=== PATIENT | male | born 1945 | race Caucasian/White ===

== ENCOUNTER 2017-12-08 16:30 | Observation (INO) | payer MEDICARE ==
[~2017-12-08] VITALS: Ht 175.3 cm; Wt 81.6 kg
[~2017-12-08 16:30] MED LIST: ANTIVERT25 MG PO; ASPIRIN81 M2 PO; MINOCIN100 MG PO; ZOCOR20 MG PO
[2017-12-08 16:39] VITALS: BP 161/87
[2017-12-08 17:07] LABS: ABSOLUTE EOSINOPHILS 0.1 thou/uL (0.0-0.7); ABSOLUTE LYMPHOCYTES 1.3 thou/uL (0.8-5.3); ABSOLUTE MONOCYTES 0.5 thou/uL (0.0-1.2); ABSOLUTE NEUTROPHILS 6.8 thou/uL (1.6-8.1); BASOPHILS 0.5 %; EOSINOPHILS 1.3 %; HEMATOCRIT 44.9 % (42.0-52.0); LYMPHOCYTES 14.6 %; MCH 29.4 pg (26.0-34.0); MCHC 33.5 g/dL (28.0-37.0); MCV 87.7 fL (80.0-100.0); MONOCYTES 5.5 %; MPV 7.7 fl. (7.2-11.1); NUCLEATED RBCS 0 /100WBC; PLATELET COUNT* 178 thou/uL (150-400); POLYS 78.1 %; RBC 5.12 mil/uL (4.50-6.00); RDW-CV 13.5 % (10.5-14.5); WBC 8.7 thou/uL (4.0-11.0)
[2017-12-08 17:12] LABS: ANION GAP 7 mmol/L (7-16); BUN 17 mg/dL (7-18); CALCIUM 8.5 mg/dL (8.5-10.1); CHLORIDE 107 mmol/L (98-107); CO2 28 mmol/L (21-32); GLUCOSE 117 mg/dL (70-99); POTASSIUM 4.2 mmol/L (3.5-5.1); SODIUM 142 mmol/L (136-145)
[2017-12-08 17:13] LABS: PROTIME 10.1 Seconds (9.20-11.50)
[2017-12-08 17:23] LABS: ALBUMIN 3.8 g/dL (3.4-5.0); ALKALINE PHOSPHATASE 73 U/L (46-116); NT-PRO BRAIN NAT PEPTIDE 48 pg/mL (<300); SGOT 14 U/L (15-37); SGPT 15 U/L (30-65); TOTAL BILIRUBIN 1.4 mg/dL (<0.1-1.0); TOTAL PROTEIN 7.3 g/dL (6.4-8.2); TROPONIN-I LEVEL <0.06 ng/mL (<0.06)
[2017-12-08 18:38] VITALS: BP 144/81
[2017-12-08 18:44] VITALS: BP 144/81
[2017-12-08 20:00] VITALS: BP 133/74
[2017-12-09] VITALS: BP 128/69
[2017-12-09 03:12] LABS: URINE BILIRUBIN NEGATIVE (Negative); URINE BLOOD NEGATIVE (Negative); URINE CLARITY CLEAR; URINE COLOR YELLOW; URINE GLUCOSE-RANDOM NEGATIVE (Negative); URINE KETONES TRACE (Negative); URINE LEUKOCYTES-REFLEX NEGATIVE (Negative); URINE NITRITE-REFLEX NEGATIVE (Negative); URINE PROTEIN NEGATIVE (Negative); URINE SPECIFIC GRAVITY 1.015 (1.005-1.030)
[2017-12-09 04:00] VITALS: BP 126/66
[2017-12-09 04:52] LABS: HEMATOCRIT 40.6 % (42.0-52.0); HEMOGLOBIN 13.9 gm/dL (14.0-18.0); MCH 29.7 pg (26.0-34.0); MCHC 34.2 g/dL (28.0-37.0); MCV 86.8 fL (80.0-100.0); MPV 8.1 fl. (7.2-11.1); RBC 4.68 mil/uL (4.50-6.00); RDW-CV 13.2 % (10.5-14.5); WBC 9.8 thou/uL (4.0-11.0)
[2017-12-09 05:05] LABS: ANION GAP 5 mmol/L (7-16); BUN 15 mg/dL (7-18); CALCIUM 8.2 mg/dL (8.5-10.1); CHLORIDE 107 mmol/L (98-107); CHOLESTEROL 104 mg/dL (<200); CO2 28 mmol/L (21-32); CREATININE 0.9 mg/dL (0.6-1.3); GLUCOSE 96 mg/dL (70-99); HDL CHOLESTEROL 39 mg/dL (>40); LDL CHOLESTEROL 50 mg/dL (<100); MAGNESIUM 2.1 mg/dL (1.8-2.4); POTASSIUM 5.1 mmol/L (3.5-5.1); SODIUM 140 mmol/L (136-145); TC:HDL 2.7 Ratio (Not establshd); TRIGLYCERIDE 75 mg/dL (<150); VLDL 15 mg/dL (<40)
[2017-12-09 05:06] LABS: SERUM ASSESSMENT Clear
[2017-12-09 08:00] VITALS: BP 135/71
[2017-12-09] MEDS ORDERED: ANTIVERT25 MG PO (08:54)
[2017-12-09] MEDS ORDERED: ADULT LOW DOSE81 MG PO (08:54)
--- NOTE | 2017-12-09 11:49 | EKG ---
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
[2017-12-09 12:00] VITALS: BP 122/60
--- NOTE | 2017-12-09 13:38 | 2DMMODE ---
[place] [address] 2 D/M-MODE ECHOCARDIOGRAM Name: LEANNE GUTIERREZ Room: [address] IN [facility]#: [id number] Admission: 12/08/17 Attend Phys: mOar Soto, Discharge: Date of : 49 Date of Service: 12/09/17 1337 Report #: [id number] THIS REPORT FOR: //name// APPROVED REPORT Study performed: 12/09/2017 10:37:43 EXAM: Comprehensive 2D, Doppler, and color-flow Echocardiogram Patient Location: In-Patient Room #: 206 Status: routine BSA: 1.98 HR: 66 bpm BP: 126/66 mmHg Rhythm: NSR Other Information Study Quality: Good Indications CVA/TIA Echo Enhancing Agent Indication: Rule out Shunt Agent(s) / Amount(s) Used: Agitated Saline 10 cc 2D Dimensions LVEF(%): 76.04 (>50%) IVSd: 8.80 (7-11mm) LVOT Diam: 19.72 (18-24mm) LVDd: 43.96 mm PWd: 8.88 (7-11mm) Ascending Ao: 32.56 (22-36mm) LVDs: 24.38 (25-40mm) Aortic Root: 36.50 mm Guerrero's LVEF: 76.04 % Volumes Left Atrial Volume (Systole) LA ESV Index: 18.20 mL/m2 Aortic Valve LVOT Max P.67 mmHg LVOT Mean P.92 mmHg LVOT Max V: 1.08 m/s LVOT Mean V: 0.62 m/s LVOT V1 VTI: 23.59 [place] [address] 2 D/M-MODE ECHOCARDIOGRAM Name: LEANNE GUTIERREZ Room: [address] IN [facility]#: [id number] Admission: 12/08/17 Attend Phys: Omar Soto, Discharge: Date of : 49 Date of Service: 12/09/17 1337 Report #: [id number] [place]: 1.99 m/s2 AI PHT: 556.56 ms Mitral Valve E/A Ratio: 1.27 MV Decel. Time: 176.12 ms MV E Max Angelito.: 0.82 m/s MV PHT: 51.07 ms MVA (PHT): 4.31 cm2 TDI E/Lateral E': 8.20 E/Medial E': 7.45 Medial E' Angelito.: 0.11 m/s Lateral E' Angelito.: 0.10 m/s Pulmonary Valve PV Peak Angelito.: 0.90 m/s PV Peak Gr.: 3.27 mmHg Tricuspid Valve TR Peak Gr.: 22.58 mmHg RVSP: 27.00 mmHg Left Ventricle The left ventricle is normal size. There is normal LV segmental wall motion. There is normal left ventricular wall thickness. Left ventricular systolic function is normal. The left ventricular ejection fraction is within the normal range. No left ventricle thrombus noted on this study. LVEF is 60-65%. The left ventricular diastolic function is normal. Right Ventricle The right ventricle is normal size. The right ventricular systolic function is normal. Atria The left atrium size is normal. Interatrial septum is intact without evidence of ASD or PFO.Negative bubble study The right atrium size is normal. Aortic Valve The aortic valve is normal in structure. Mild aortic regurgitation. There is no aortic valvular stenosis. Mitral Valve The mitral valve is normal in structure. There is no mitral valve regurgitation noted. No evidence of mitral [place] [address] 2 D/M-MODE ECHOCARDIOGRAM Name: BRENDALEANNE BRINK A Room: [address] IN [facility]#: [id number] Admission: 12/08/17 Attend Phys: Omar Soto, Discharge: Date of : 49 Date of Service: 12/09/17 1337 Report #: [id number] Tricuspid Valve The tricuspid valve is normal in structure. Mild tricuspid regurgitation. The RVSP is ___27____ mmHg. Pulmonic Valve The pulmonary valve is normal in structure. There is no pulmonic valvular regurgitation. Great Vessels The aortic root is normal in size. IVC is normal in size and collapses with >50% inspiration Pericardium There is no pericardial effusion. <Conclusion> The left ventricle is normal size. There is normal LV segmental wall motion. LVEF is 60-65%. The aortic valve is normal in structure. Mild aortic regurgitation. There is no aortic valvular stenosis. There is no mitral valve regurgitation noted. No evidence of mitral valve stenosis. Mild tricuspid regurgitation. The RVSP is 27mmHg. Interatrial septum is intact without evidence of ASD or PFO.Negative bubble study <ELECTRONICALLY SIGNED> By: José Soto MD, FACC 12/09/171336 36 36 José Soto MD, FACC /INF
[2017-12-09 16:50] VITALS: BP 116/55
[2017-12-09 17:01] VITALS: BP 116/55
[2017-12-09 19:08] LABS: GLYCOHEMOGLOBIN (HGB A1C) 4.9 % (4.8-5.6)
== END 2017-12-09 18:31 | disposition home or self-care (01) ==
LOC: M.ERS 16:30 → M.2W 17:12 → M.TBA-ER 17:12 → M.2W 18:30
PROVIDERS: Family Medicine; ADMIT Internal Medicine
DX: R42 Dizziness and giddiness (principal); H53.2 Diplopia; E78.5 Hyperlipidemia, unspecified; M54.81 Occipital neuralgia; I67.1 Cerebral aneurysm, nonruptured; T85.09XA Other mechanical complication of ventricular intracranial (communicating) shunt, initial encounter; Z86.73 Personal history of transient ischemic attack (TIA), and cerebral infarction without residual deficits; Z98.2 Presence of cerebrospinal fluid drainage device; Z86.79 Personal history of other diseases of the circulatory system

== ENCOUNTER 2018-04-22 14:56 | Emergency (ER) | payer MEDICARE ==
[~2018-04-22] VITALS: Ht 177.8 cm; Wt 80.2 kg
[~2018-04-22 14:56] MED LIST changes: +ADULT LOW DOSE81 MG PO
[2018-04-22 15:27] LABS: ABSOLUTE BASOPHILS 0.1 thou/uL (0.0-0.2); ABSOLUTE EOSINOPHILS 0.2 thou/uL (0.0-0.7); ABSOLUTE LYMPHOCYTES 1.4 thou/uL (0.8-5.3); ABSOLUTE MONOCYTES 0.7 thou/uL (0.0-1.2); ABSOLUTE NEUTROPHILS 5.4 thou/uL (1.6-8.1); BASOPHILS 1.1 %; EOSINOPHILS 2.3 %; HEMOGLOBIN 15.3 gm/dL (14.0-18.0); LYMPHOCYTES 17.7 %; MCH 29.6 pg (26.0-34.0); MCV 86.9 fL (80.0-100.0); MPV 7.7 fl. (7.2-11.1); NUCLEATED RBCS 0 /100WBC; PLATELET COUNT* 175 thou/uL (150-400); POLYS 69.9 %; RBC 5.17 mil/uL (4.50-6.00); WBC 7.7 thou/uL (4.0-11.0)
[2018-04-22 15:44] LABS: ANION GAP 7 mmol/L (7-16); BUN 17 mg/dL (7-18); CALCIUM 8.8 mg/dL (8.5-10.1); CHLORIDE 105 mmol/L (98-107); CO2 27 mmol/L (21-32); GLUCOSE 91 mg/dL (70-99); POTASSIUM 4.4 mmol/L (3.5-5.1); SODIUM 139 mmol/L (136-145)
[2018-04-22 15:55] LABS: ALBUMIN 3.9 g/dL (3.4-5.0); ALKALINE PHOSPHATASE 80 U/L (46-116); LIPASE 110 U/L (73-393); NT-PRO BRAIN NAT PEPTIDE 63 pg/mL (<300); SGOT 15 U/L (15-37); SGPT 14 U/L (30-65); TOTAL BILIRUBIN 2.4 mg/dL (<0.1-1.0); TOTAL PROTEIN 7.6 g/dL (6.4-8.2); TROPONIN-I LEVEL <0.06 ng/mL (<0.06)
[2018-04-22] MEDS ORDERED: CITRATE OF MAG296 M1 PO (16:48)
[2018-04-22 17:10] VITALS: BP 135/71
--- NOTE | 2018-04-23 12:47 | EKG ---
[place] [address] ELECTROCARDIOGRAM REPORT Name: LEANNE GUTIERREZ Room: [facility]#: [id number] Admission: 04/22/18 Attend Phys: Discharge: 04/22/18 Date of : 49 Report #: [id number] THIS REPORT FOR: //name// [facility] ED Test Date: 2018-04-22 Test Time: 15:24:12 Pat Name: LEANNE GUTIERREZ Department: Room: Gender: Forensic Technician: Rigoberto GONZÁLES : 1945 Requested By: Natalie Walker Order Number: [id number] MD: José Soto Measurements Intervals [place] Rate: 63 P: 35 SD: 140 QRS: 14 QRSD: 92 T: 14 QT: 391 QTc: 401 Interpretive Statements Sinus rhythm Compared to ECG 12/08/2017 16:56:48 No significant changes Electronically Signed On 04-23-2018 12:46:54 CDT by José Soto [email or web address] <ELECTRONICALLY SIGNED> By: José Soto MD, [facility] 04/23/18 1246 1524 1524 José Soto MD, FACC /EPI
== END 2018-04-22 17:11 | disposition home or self-care (01) ==
LOC: M.ERS 14:56
PROVIDERS: Nurse Practitioner
DX: K59.00 Constipation, unspecified (principal); I10 Essential (primary) hypertension; Z86.73 Personal history of transient ischemic attack (TIA), and cerebral infarction without residual deficits

== ENCOUNTER → 2018-06-08 | Outpatient (CLI) | payer MEDICARE ==
[~2018-06-08] MED LIST changes: +CITRATE OF MAG296 M1 PO
[2018-06-08 10:33] LABS: DIRECT BILIRUBIN 0.2 mg/dL (<0.1-0.3); TOTAL BILIRUBIN 1.2 mg/dL (<0.1-1.0)
== END ==
LOC: M.LAB 09:18 → M.ULTRA 09:18
PROVIDERS: Internal Medicine Gastroenterology
DX: K76.89 Other specified diseases of liver (principal)

== ENCOUNTER 2020-12-09 13:11 | Inpatient (IN) | payer MEDICARE ==
[~2020-12-09] VITALS: Ht 180.3 cm; Wt 81.6 kg
--- NOTE | ~2020-12-09 | EEG ---
[address] [address] EEG STUDY REPORT Name: LEANNE GUTIERREZ Room: [address] IN .R.#: [id number] Admission: 12/09/20 Attend Phys: Socrates Ariza MD Discharge: Date of : 49 Report #: [id number] THIS REPORT FOR: cc: FAM - No family physician/PCP FAM - No family physician/PCP Doroteo Patel MD ~ DOC #: [id number] Doroteo Patel MD DATE OF SERVICE: 12/10/2020 This patient is being evaluated for episodes of altered mental status. EEG was done by placing the electrode by standard 10-20 system of electrode placement. Both referential and sequential montages were used for recording. Background activity in this patient's EEG is about 8 Hz and 30 microvolt. The patient went to sleep that is associated with bilateral slowing and vertex sharp waves. EEG continued to be slow and low voltage even when the patient was awake. Photic stimulation is unremarkable. Throughout the record, no active epileptiform activity was noticed. IMPRESSION: This patient's EEG is slow and somewhat disorganized. That is a nonspecific abnormality which can occur with encephalopathy, effect of psychotropic medication, dementia, etc. Clinical correlation is recommended. Doroteo Patel MD PK/REUBEN/BAOI By: 1747 1840Doroteo Patel MD /bo
--- NOTE | ~2020-12-09 | CON ---
[address] [address] CONSULTATION Name: BRENDABERTO Room: [address] IN .R.#: [id number] Admission: 12/09/20 Attend Phys: Socrates Ariza MD Discharge: Date of : 49 Report #: [id number] THIS REPORT FOR: cc: FAM - No family physician/PCP FAM - No family physician/PCP Doroteo Patel MD ~ DOC #: [id number] Doroteo Patel MD DATE OF CONSULTATION: 12/09/2020 HISTORY OF PRESENT ILLNESS: This is a 75-year-old male patient who was evaluated by me for pretty unstructured symptom. I talked to the emergency room doctor, it looks like this patient had some confusion, disorientation and some ataxia and slurring of the speech, which happened when he woke up this morning. It was noticed when he woke up this morning, so the time of onset is not clear. 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 He said aneurysm was clipped. He does not know when it was clipped because he says his memory is poor. He has a caregiver. I think we need to confirm his history from somebody else. REVIEW OF SYSTEMS: Also, apparently positive for ventriculoperitoneal shunt, coil placement. He does not know whether the coil was compatible with MRI or not. He has a history of hypertension, CVA. He is very hard of hearing that is his baseline. He does not think he is having any new eye, ENT, cardiac, respiratory, GI, , musculoskeletal, constitutional, dermatological, hematological, psychiatric, throat, allergic symptom associated with present symptomatology. PAST MEDICAL HISTORY: Positive for aneurysm, coil put in. He does not know any more history about that. FAMILY HISTORY: Unremarkable. SOCIAL HISTORY: He used to work as a dentist. He does not smoke or drink any alcohol. PHYSICAL EXAMINATION: NEUROLOGIC: He is hard of hearing, but he can tell me what month it is. His speech looks intact. He feels back to his baseline. His memory is poor. His cranial nerve examination II-XII looks mostly unremarkable. Neuromuscular examination is also unremarkable. He does not appear to have any olyghm-ud-ohkx abnormality. His fundus could not be visualized. He is a pretty well-built individual. He does not have any edema. VITAL SIGNS: His blood pressure is 130/72, respirations 12, [place] 70[place] [address] CONSULTATION Name: LEANNE GUTIERREZ Room: [address]#: [id number] Admission: 12/09/20 Attend Phys: Socrates Ariza MD Discharge: Date of : 49 Report #: [id number] CARDIAC: Examination is unremarkable. Pulses are palpable. LUNGS: No respiratory difficulty was noticed. NECK: No thyroid mass. No carotid bruit. HEENT: He is hard of hearing, but his vision looks intact. No dysmorphic features of eyes, ears and face. LABORATORY DATA: Indicates a white count of 6.6 and sodium of 141. DIAGNOSTIC DATA: He did have a CT scan of the head which was unremarkable. He also had a CT perfusion, which was unremarkable. 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 He has right SANDWICH MAKER shunt, which is not clear whether it is even MRI compatible or not. IMPRESSION: An episode which can be transient ischemic attack. His workup so far is unremarkable. Sometime this patients can have nonconvulsive seizures. RECOMMENDATIONS: 1. EEG. 2. We will get an echocardiogram. 3. We will not be able to do MRI in this patient because we do not know whether the coil was compatible with MRI and we do not know whether SANDWICH MAKER shunt is compatible with MRI. I discussed all of it with the patient and the patient understands and he wants to follow this plan. Thank you very much for this referral. Doroteo Patel MD PK/SUM By: 1630 28Parsimone Patel MD /nt
[2020-12-09 13:22] VITALS: BP 165/83
[2020-12-09 13:54] LABS: ABSOLUTE BASOPHILS 0.1 thou/uL (0.0-0.2); ABSOLUTE EOSINOPHILS 0.1 thou/uL (0.0-0.7); ABSOLUTE LYMPHOCYTES 1.2 thou/uL (0.8-5.3); ABSOLUTE MONOCYTES 0.6 thou/uL (0.0-1.2); ABSOLUTE NEUTROPHILS 4.6 thou/uL (1.6-8.1); BASOPHILS 0.9 %; EOSINOPHILS 2.1 %; HEMATOCRIT 42.3 % (42.0-52.0); HEMOGLOBIN 14.8 gm/dL (14.0-18.0); LYMPHOCYTES 18.3 %; MCH 30.3 pg (26.0-34.0); MCV 86.6 fL (80.0-100.0); MONOCYTES 9.3 %; MPV 7.4 fl. (7.2-11.1); NUCLEATED RBCS 0 /100WBC; PLATELET COUNT* 186 thou/uL (150-400); POLYS 69.4 %; RBC 4.89 mil/uL (4.50-6.00); RDW-CV 13.8 % (10.5-14.5); WBC 6.6 thou/uL (4.0-11.0)
[2020-12-09 14:00] LABS: CALCIUM 8.8 mg/dL (8.5-10.1)
[2020-12-09 14:03] LABS: APTT 25.4 Seconds (25.0-31.3); PROTIME 10.3 Seconds (9.20-11.50)
[2020-12-09 14:10] LABS: ALBUMIN 3.8 g/dL (3.4-5.0); TOTAL BILIRUBIN 1.1 mg/dL (<0.1-1.0); TOTAL PROTEIN 7.6 g/dL (6.4-8.2)
--- NOTE | 2020-12-09 15:33 | EKG ---
[place] [address] ELECTROCARDIOGRAM REPORT Name: BRENDALEANNE Room: [place] [address] ADM IN [facility]#: [id number] Admission: 12/09/20 Attend Phys: Socrates Ariza, Discharge: Date of : 49 Date of Service: 12/09/20 1340 Report #: [id number] THIS REPORT FOR: //name// [facility] ED Test Date: 2020-12-09 Test Time: 13:40:00 Pat Name: LEANNE GUTIERREZ Department: Room: [facility] Gender: M Hog Handler: NEPTALI : 1945 Requested By: Thom Arcos Order Number: [id number] MD: Jt Gonzalez Measurements Intervals [place] Rate: 69 P: 11 ID: 157 QRS: 13 QRSD: 91 T: 39 QT: 395 QTc: 423 Interpretive Statements Sinus rhythm Borderline low voltage, extremity leads Compared to ECG 04/22/2018 15:24:12 No significant changes Electronically Signed On 12-09-2020 15:33:35 CDT by Jt Gonzalez [email or web address] <ELECTRONICALLY SIGNED> By: Jt Gonzalez MD, FACC 12/09/20 1533 1340 1340 Jt Gonzalez MD, [facility] /EPI
--- NOTE | 2020-12-09 17:33 | NUR ---
PT TOLERATED 2GM MEAL FOR DINNER WITHOUT DIFFICULTY
[2020-12-09 18:18] VITALS: BP 134/73
[2020-12-09 20:20] VITALS: BP 142/70
[2020-12-09 20:30] VITALS: BP 160/79
[2020-12-10 00:36] VITALS: BP 129/57
[2020-12-10 01:17] LABS: URINE BILIRUBIN NEGATIVE (Negative); URINE BLOOD NEGATIVE (Negative); URINE CLARITY CLEAR; URINE COLOR YELLOW; URINE GLUCOSE-RANDOM NEGATIVE (Negative); URINE KETONES NEGATIVE (Negative); URINE LEUKOCYTES-REFLEX NEGATIVE (Negative); URINE NITRITE-REFLEX NEGATIVE (Negative); URINE PROTEIN NEGATIVE (Negative)
--- NOTE | 2020-12-10 04:05 | NUR ---
RECEIVED REPORT FROM ED RN PATSY. PT IS BEING ADMITTED FOR STROKE. RN STATED, "PT'S SPOUSE BROUGHT PT TO ED FOR SLURRING HIS WORDS AND HAD INCREASED CONFUSION SINCE THE MORNING." PT'S NIH SCORE IN ED WAS 2, MINOR FACIAL PALSY AND MILD TO MODERATE APHAGIA. PT HAS BEEN SEEN BY NEUROLOGY IN ED. PT ADMITTED TO TELE UNIT RM #224 AT 2027. PT IS A/OX4. PT'S NIH STROKE SCALE WAS 1. VSS. PT IS TRACING NS ON TELEMONITOR. PT IS ON RA, O2 SAT 99%. PT DENIES ANY RESPIRATORY ISSUES. PT HAS AN IV IN LAC 20G AND IS SL. PT IS CONTINENT OF BOWEL AND BLADDER. PT IS UP WITH ASSISTANCE TO RESTROOM. PT VOICED CONCERNS ABOUT NEEDING HEARING AIDES. PT STATED HE WOULD TALK WITH THE DOCTOR IN THE MORNING. PT RESTED DURING THE NIGHT. NO C/O VOICED. FALL PRECAUTIONS IN PLACE FOR SAFETY. CALL LIGHT WITHIN REACH. HOURLY ROUNDS COMPLETE CHARTED. WILL CONT. TO MONITOR.
[2020-12-10 04:06] LABS: GLYCOHEMOGLOBIN (HGB A1C) 5.1 % (4.8-5.6)
[2020-12-10 04:39] LABS: ABSOLUTE EOSINOPHILS 0.2 thou/uL (0.0-0.7); ABSOLUTE LYMPHOCYTES 1.6 thou/uL (0.8-5.3); ABSOLUTE MONOCYTES 0.7 thou/uL (0.0-1.2); BASOPHILS 0.5 %; EOSINOPHILS 3.1 %; HEMATOCRIT 39.3 % (42.0-52.0); HEMOGLOBIN 13.3 gm/dL (14.0-18.0); MCH 29.1 pg (26.0-34.0); MCHC 33.7 g/dL (28.0-37.0); MCV 86.3 fL (80.0-100.0); MONOCYTES 8.7 %; MPV 8.1 fl. (7.2-11.1); NUCLEATED RBCS 0 /100WBC; PLATELET COUNT* 172 thou/uL (150-400); POLYS 66.7 %; RBC 4.56 mil/uL (4.50-6.00); RDW-CV 13.8 % (10.5-14.5); WBC 7.5 thou/uL (4.0-11.0)
[2020-12-10 04:40] VITALS: BP 112/53
[2020-12-10 04:54] LABS: CALCIUM 8.4 mg/dL (8.5-10.1); POTASSIUM 4.1 mmol/L (3.5-5.1)
[2020-12-10 04:57] LABS: CHOLESTEROL 130 mg/dL (<200); HDL CHOLESTEROL 35 mg/dL (>40); LDL CHOLESTEROL 72 mg/dL (<100); TC:HDL 3.7 Ratio (Not establshd); TRIGLYCERIDE 115 mg/dL (<150); VLDL 23 mg/dL (<40)
[2020-12-10 05:05] LABS: SERUM ASSESSMENT Clear
[2020-12-10 07:45] VITALS: BP 135/61
[2020-12-10 12:05] VITALS: BP 131/72
[2020-12-10 16:56] VITALS: BP 126/60
--- NOTE | 2020-12-10 17:36 | 2DMMODE ---
[place] [address] 2 D/M-MODE ECHOCARDIOGRAM Name: IGOR GUTIERREZ Room: [address] IN [facility]#: [id number] Admission: 12/09/20 Attend Phys: Socrates Ariza, Discharge: Date of : 49 Date of Service: 12/10/20 1735 Report #: [id number] THIS REPORT FOR: cc: FAM - No family physician/PCP FAM - No family physician/PCP Igor Obando MD [facility] ~ APPROVED REPORT Study performed: 12/10/2020 13:19:19 EXAM: Comprehensive 2D, Doppler, and color-flow Echocardiogram/ Bubble Study Patient Location: In-Patient Room #: [facility] BSA: 1.99 HR: 82 bpm BP: 131/72 mmHg Other Information Study Quality: Good Indications CVA/TIA 2D Dimensions IVSd: 15.81 (7-11mm) LVOT Diam: 20.27 (18-24mm) LVDd: 35.57 mm PWd: 9.97 (7-11mm) Ascending Ao: 34.63 (22-36mm) LVDs: 19.22 (25-40mm) Aortic Root: 33.06 mm Volumes Left Atrial Volume (Systole) LA ESV Index: 17.30 mL/m2 Aortic Valve AoV Peak Angelito.: 1.38 m/s AO Peak Gr.: 7.56 mmHg LVOT Max P.58 mmHg AO Mean Gr.: 4.73 mmHg LVOT Mean P.90 mmHg LVOT Max V: 1.28 m/s AO V2 VTI: 25.78 cm LVOT Mean V: 0.93 m/s NGHIA (VTI): 2.95 cm2 LVOT V1 VTI: 23.56 cm AI [place]: 1.53 m/s2 AI PHT: 678.81 [place] [address] 2 D/M-MODE ECHOCARDIOGRAM Name: IGOR GUTIERREZ Room: [address] IN [facility]#: [id number] Admission: 12/09/20 Attend Phys: Socrates Ariza, Discharge: Date of : 49 Date of Service: 12/10/20 1735 Report #: [id number] Mitral Valve E/A Ratio: 0.78 MV Decel. Time: 292.14 ms MV E Max Angelito.: 0.70 m/s MV PHT: 84.72 ms MVA (PHT): 2.60 cm2 TDI E/Lateral E': 7.78 E/Medial E': 7.78 Medial E' Angelito.: 0.09 m/s Lateral E' Angelito.: 0.09 m/s Pulmonary Valve PV Peak Angelito.: 1.02 m/s PV Peak Gr.: 4.17 mmHg Tricuspid Valve RAP Estimate: 5.00 mmHg TR Peak Gr.: 25.77 mmHg RVSP: 30.77 mmHg PA Pressure: 30.77 mmHg Left Ventricle The left ventricle is normal size. There is normal LV segmental wall motion. There is normal left ventricular wall thickness. Left ventricular systolic function is normal. LVEF is >70%. Grade I - abnormal relaxation pattern. Right Ventricle The right ventricle is normal size. The right ventricular systolic function is normal. Atria The left atrium size is normal. Injection of bubbles documented no interatrial shunt. The right atrium size is normal. Aortic Valve The Aortic valve is sclerotic. Mild aortic regurgitation. There is no aortic valvular stenosis. Mitral Valve The mitral valve is normal in structure. There is no mitral valve regurgitation noted. No evidence of mitral valve stenosis. Tricuspid Valve The tricuspid valve is normal in structure. Mild tricuspid regurgitation. The RVSP is 30-35 [place] [address] 2 D/M-MODE ECHOCARDIOGRAM Name: IGOR GUTIERREZ Room: [address] IN ..#: [id number] Admission: 12/09/20 Attend Phys: Socrates Ariza, Discharge: Date of : 49 Date of Service: 12/10/20 1735 Report #: [id number] Pulmonic Valve The pulmonary valve is normal in structure. There is no pulmonic valvular regurgitation. Great Vessels The aortic root is normal in size. IVC is normal in size and collapses >50% with inspiration. Pericardium There is no pericardial effusion. <Conclusion> The left ventricle is normal size. There is normal left ventricular wall thickness. Left ventricular systolic function is normal. LVEF is >70%. Grade I - abnormal relaxation pattern. There is normal LV segmental wall motion. Injection of bubbles documented no interatrial shunt. The Aortic valve is sclerotic. Mild aortic regurgitation. Mild tricuspid regurgitation. The RVSP is 30-35 mmHg. IVC is normal in size and collapses >50% with inspiration. <ELECTRONICALLY SIGNED> By: Igor Obando MD, FACC 12/10/20 1735 34 173 Igor Obando MD, FACC /INF
--- NOTE | 2020-12-10 17:55 | NUR ---
Pt alert and conversational, but not oriented to time or fully oriented to situation; forgetful. Sneha, pt's caregiver/friend, at bedside this morning. Requesting that Jorge Saez contact her when he rounds. Message relayed to Dr. Patel when he was here this afternoon. VSS. NIH 1 (slight facial droop). Pt up with walker and standby assist. Will continue to monitor.
[2020-12-10 19:30] VITALS: BP 124/62
[2020-12-11] VITALS (7 sets, daily range): BP systolic 120–161; BP diastolic 62–72
--- NOTE | 2020-12-11 06:01 | NUR ---
ASSUMED PT CARE AT APPROX. 1915. PT IS A/OX4. PTS NIH STROKE SCALE WAS 1. VSS. PT IS TRACING SR ON TELEMONITOR. PT IS ON RA, O2 SAT 98%. PT DENIES ANY RESPIRATORY ISSUES. PT HAS AN IV IN LAC 20G AND IS SL. IV IS SLUGGISH TO FLUSH BUT IS PATENT. PT IS UP W/ ASSISTANCE TO RR. PT RESTED DURING THE NIGHT. NO C/O VOICED. FALL PRECAUTIONS IN PLACE FOR SAFETY. CALL LIGHT WITHIN REACH. HOURLY ROUNDS COMPLETE CHARTED. WILL CONT. TO MONITOR.
--- NOTE | 2020-12-11 08:42 | NUR ---
RECEIVED REPORT AROUND 0715. ASSUMED CARE. PT LYING IN BED THIS AM. VS AND ASSESSMENT CHARTED. NO PAIN THIS AM. IV INTACT LEFT AC. HEART MONITOR ATTACHED AT SR. CALL LIGHT WITH IN REACH. WILL CONTINUE TO MONITOR.
[2020-12-11] MEDS ORDERED: ASA81BEC PO (09:14)
[2020-12-11] MEDS ORDERED: SIMVASTATIN40 MG PO (09:19)
--- NOTE | 2020-12-11 14:27 | NUR ---
PLAN OF CARE: PLAN FOR THE PT TO D/C HOME TODAY WITH HH. PT WILL NEED A PCP HIS RECENTLY RETIRED. JULIO GORDILLO VISITED PT AND PT NOW DECLINING HH. RN INFORMED AND TO INFROM PHYSICIAN OF THIS. JULIO GORDILLO REP ASSISTED PT WITH ARRANGING PCP APPOINTMENT. CM WILL REMAIN AVAILABLE TO ASSIST AND FOLLOW NEEDED.
--- NOTE | 2020-12-11 14:57 | NUR ---
RECEIVED DISCHARGE ORDERS. OCCUPATIONAL ABLE TO SEE PT TO [facility] FOR DISCHARGE. OK FOR DISCHARGE. DECLINED HOME HEALTH. DUE DILIGENCE COORDINATOR AT BEDSIDE. GAVE DISCHARGE PACKET TO DUE DILIGENCE COORDINATOR. COMMUNICATED UNDERSTANDING. IV TAKEN OUT. HEART MONITOR OFF. PT STABLE ON FEET. PT LEFT UNIT VIA WHEEL CHAIR WITH NURSING STAFF AND ALL BELONGINGS AT 1457.
--- NOTE | 2020-12-11 15:01 | NUR ---
[facility] Bedside Assessment by NTN: Met with and patient. 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 Pt. and declining HH. They understood about the safety and not having to come back to hospital as each trip to hospital is a decline for patient. PT assessment did not validate need. Was able to educate on getting established with a pcp. Pt. had Dr. Padilla and no one since he retired. They will be calling that office and get set up with someone, maybe Dr. Rodriguez who took over Dr. Padilla's practice. Notified Sabrina of this and notified HH, Plan to make a phone call later after patient is homw to make sure ok.
== END 2020-12-11 14:57 | disposition home health service (06) | DRG 71 ==
LOC: M.ERS 13:11 → M.TBA-ER 15:00 → M.2W 15:00
PROVIDERS: Emergency Medicine Emergency Medical Services; ADMIT Internal Medicine; ATTEND Internal Medicine
DX: G93.41 Metabolic encephalopathy (principal); I50.32 Chronic diastolic (congestive) heart failure; Z20.822 Contact with and (suspected) exposure to COVID-19; I11.0 Hypertensive heart disease with heart failure; Z79.82 Long term (current) use of aspirin; Z79.899 Other long term (current) drug therapy; Z86.73 Personal history of transient ischemic attack (TIA), and cerebral infarction without residual deficits

== ENCOUNTER 2021-06-12 06:39 | Observation (INO) | payer MEDICARE ==
[~2021-06-12] VITALS: Ht 175.3 cm; Wt 77.1 kg
--- NOTE | ~2021-06-12 | OP ---
[address] [address] OPERATIVE REPORT Name: LEANNE GUTIERREZ Room: [address] Josemanuel Pisano#: [id number] Admission: 06/12/21 Attend Phys: Javy Lima MD Discharge: Date of : 49 Report #: [id number] THIS REPORT FOR: cc: [place] MD, Christopher B. MD Haggard,Javy Odom MD ~ DATE OF SURGERY: 06/12/2021 PREOPERATIVE DIAGNOSES: Urinary retention, benign prostatic hypertrophy with obstruction, bladder calculus. POSTOPERATIVE DIAGNOSES: Urinary retention, benign prostatic hypertrophy with obstruction, bladder calculus. PROCEDURE: Cystolitholapaxy less than 2.5 cm in size, transurethral resection of the prostate. STAFF SURGEON: Javy Lima MD BRIDGE EXPERT: None. ANESTHESIA: General. ESTIMATED BLOOD LOSS: 20 mL. COMPLICATIONS: None. SPECIMEN: Bladder calculus fragments and prostate chips. DRAIN: A 22-Maldivian 3-way Harris catheter. INDICATIONS: The patient is a pleasant 76-year-old white male who was found with complete urinary retention. He was constipated, he had antibiotics. He failed his voiding trial. He has an indwelling Harris catheter. CT scan confirms a 1.3 cm bladder stone. He was counseled regarding treatment options, elected for definitive cystolitholapaxy with cystoscopy and transurethral resection of the prostate. After risks and benefits of the procedure explained, informed consent was obtained. OPERATIVE PROCEDURE: The patient was taken to the operating room, comfortably placed in the dorsal lithotomy position under adequate general anesthesia. He was sterilely prepped and draped in sterile fashion exposing only the genitalia. He received his antibiotic therapy as prescribed. Appropriate timeout was carried out and all were in agreement. A 22-Maldivian cystoscope was placed into his urethra. Anterior urethra normal, sphincter intact. Prostate showed trilobar prostatic hyperplasia with visual obstruction[place] [address] OPERATIVE REPORT Name: LEANNE GUTIERREZ Room: [address] Josemanuel Pisano#: [id number] Admission: 06/12/21 Attend Phys: Javy Lima MD Discharge: Date of : 49 Report #: [id number] systematically viewed. There was a [place] noted on the right hand side lateral and posterior to the median lobe. 1000 micron holmium laser fiber was used to fragment the bladder stone into multiple small fragments using Scooby evacuator to get the majority of the fragments out. I did the median lobe and difficult to irrigate behind. I elected to go ahead and proceed with transurethral resection of the prostate with irrigation of remaining stone fragments at a later time. The cystoscope was then removed. A 26-Maldivian continuous flow sheath with Abington obturator put in place. A plasma resectoscope was put in place and underwent bipolar resection from the bladder neck to the verumontanum circumferentially. Median lobe was resected first, followed by left lobe, right lobe and then the roof. The entire prostatic fossa was fulgurated, smoothed out with the button. Prostate chips were removed with an [employer] evacuator including the remaining stone fragments as well. Care was taken not to damage either ureteral orifice or the urethral sphincter. The resectoscope was then removed, was able to demonstrate excellent force of stream. A 22-Maldivian 3-way Harris catheter put in place and secured with 30 mL of sterile water, it was clear with a faint pink tinge. He tolerated the procedure well. He was extubated in the operating room, transferred to [facility] with assistance and went to recovery in stable condition. Anticipate overnight hospital stay with a voiding trial in the morning. By: 1229 [id number] Lima MD /bo
[~2021-06-12 06:39] MED LIST changes: +ASA81BEC PO; +FISH OIL 1,0001 EAC9 PO; +SIMVASTATIN40 MG PO
[2021-06-12 11:47] LABS: HEMOGLOBIN 13.4 gm/dL (14.0-18.0); MCH 28.4 pg (26.0-34.0); MCHC 33.5 g/dL (28.0-37.0); MCV 84.8 fL (80.0-100.0); MPV 7.3 fl. (7.2-11.1); RBC 4.71 mil/uL (4.50-6.00); RDW-CV 14.3 % (10.5-14.5); WBC 7.2 thou/uL (4.0-11.0)
[2021-06-12] MEDS ORDERED: FLOMAX0.4 MG PO (18:43)
[2021-06-12 21:15] VITALS: BP 121/65
[2021-06-12 23:33] VITALS: BP 117/54
[2021-06-13 03:46] VITALS: BP 106/55
[2021-06-13 09:36] VITALS: BP 118/70
--- NOTE | 2021-06-13 09:39 | EKG ---
[place] [address] ELECTROCARDIOGRAM REPORT Name: LEANNE GUTIERREZ Room: [address]R.#: [id number] Admission: 06/12/21 Attend Phys: Javy Lima MD Discharge: Date of : 49 Date of Service: 06/12/21 1123 Report #: [id number] THIS REPORT FOR: //name// [facility] Test Date: 2021-06-12 Test Time: 11:23:00 Pat Name: LEANNE GUTIERREZ Department: Room: [facility] Gender: M Health Safety Specialist: DA : 1945 Requested By: Urbano Smart Order Number: [id number] Radha MD: Ronni Chowdary Measurements Intervals [place] Rate: 69 P: 31 VT: 143 QRS: 7 QRSD: 86 T: 46 QT: 391 QTc: 419 Interpretive Statements Sinus rhythm Compared to ECG 12/09/2020 13:40:00 No significant changes Electronically Signed On 06-13-2021 9:39:17 SAFETY SECURITY OFFICER by Ronni [email or web address] [email or web address] <ELECTRONICALLY SIGNED> By: Ronni Chowdary MD, [facility] 06/13/21 0939 1123 1123 Ronni Chowdary MD, [facility] /EPI
[2021-06-13 14:02] VITALS: BP 118/70
--- NOTE | 2021-06-16 18:06 | PATH ---
[address] [address] PATHOLOGY RPT PROCEDURE Name: IGOR GUTIERREZ Room: [address] Josemanuel Pisano#: [id number] Admission: 06/12/21 Date of : 49 Discharge: 06/13/21 Report #: [id number] Path Case #: [id number] [facility] Accession Number: [id number] . 01 Material submitted: . PART A: bladder - BLADDER STONE PART B: prostate - PROSTATE . 01 Clinical history: . CYSTOSCOPY WITH LITHOLAPAXY CYSTOSCOPY WITH TURP BPH W/ OBSTRUCTION, BLADDER STONES . 02 Diagnosis: A. Bladder calculi: - Consistent with calculi. - The specimen is sent out for further processing. Report pending outside analysis with results to follow in an addendum. . B. 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 (RUTH:makenna; 06/16/2021) [facility] 06/16/2021 1438 Local . 02 Comment: We find no evidence of malignancy in any of the tissue examined. (SWK:makenna; 06/16/2021) . 02 Electronically signed: . Shahzad Kirkland MD, Pathologist NPI- [id number] . 01 Gross description: . A. The specimen is received in formalin, labeled "Igor Gutierrez, bladder stone". Received are multiple dark brown calculi ranging from 0.2 cm to 0.7 cm in greatest dimensions. The specimen is forwarded to sendouts for further processing. . B. The specimen is received in formalin, labeled "Deangelo Igor, prostate". Received are multiple segments of light fortune to dark fortune tissue weighing 6 g and measuring 5.7 x 4.5 x 0.8 cm in aggregate dimensions. The specimen is submitted entirely in cassettes B1 to B6.([facility]; 06/13/2021) [facility] 06/13/2021 1128 Local . 02 Pathologist provided ICD-10: N21.0, N40.0, N41.1 . 02 [place] [address] PATHOLOGY RPT PROCEDURE Name: IGOR GUTIERREZW Room: [address] Josemanuel Pisano#: [id number] Admission: 06/12/21 Date of : 49 Discharge: 06/13/21 Report #: [id number] Path Case #: [id number] CPT . [id number] Specimen Comment: A courtesy copy of this report has been sent to [phone] Specimen Comment: [phone] Specimen Comment: Report sent to / DR CEDEÑO Performed at: 01 [facility] [address] [id number] MD Ganesh Larson MD Phone: [phone] Performed at: 02 [facility] [address] [id number] MD Shazhad Kirkland MD Phone: [phone]
== END 2021-06-13 15:41 | disposition home or self-care (01) ==
LOC: M.PRE 06:39 → M.TBA 11:00 → M.3W 17:33
PROVIDERS: Anesthesiology; ADMIT Urology; ATTEND Urology
DX: N40.1 Benign prostatic hyperplasia with lower urinary tract symptoms (principal); R33.9 Retention of urine, unspecified; N21.0 Calculus in bladder; Z20.822 Contact with and (suspected) exposure to COVID-19; Z79.899 Other long term (current) drug therapy; R42 Dizziness and giddiness; G93.40 Encephalopathy, unspecified; E78.5 Hyperlipidemia, unspecified; I10 Essential (primary) hypertension; E11.9 Type 2 diabetes mellitus without complications; F17.210 Nicotine dependence, cigarettes, uncomplicated